=== PATIENT | male | born 1990 | race Caucasian/White ===

== ENCOUNTER 2018-07-18 17:10 | Emergency (ER) | payer SELFPAY ==
[~2018-07-18] VITALS: Ht 182.9 cm; Wt 79.5 kg
[~2018-07-18 17:10] MED LIST: ALLEGRA180 MG PO; BACTROBAN 22GM22 GM TP; GENTAMICIN OPTHA3 GM OU; MYCOLOG-II 10001 CRE TP; NIX CREME RINSE60 M1 TP; NO HOME MEDICATIONS; NORCO 325 MG-51 TAB PO; ULTRAM 50MG TAB50 MG PO
[2018-07-18 17:25] VITALS: BP 110/82; TEMP 97.8
[2018-07-18 18:28] VITALS: PULSE 83
== END 2018-07-18 18:30 | disposition home or self-care (01) ==
LOC: COL.ER 17:10
DX: S61.211A Laceration without foreign body of left index finger without damage to nail, initial encounter (principal); Z23 Encounter for immunization; Z88.0 Allergy status to penicillin; Z88.5 Allergy status to narcotic agent; F17.210 Nicotine dependence, cigarettes, uncomplicated; W26.0XXA Contact with knife, initial encounter; Y92.009 Unspecified place in unspecified non-institutional (private) residence as the place of occurrence of the external cause

== ENCOUNTER 2019-03-23 19:45 | Emergency (ER) | payer SELFPAY ==
[~2019-03-23] VITALS: Ht 182.9 cm; Wt 77.3 kg
[2019-03-23 19:49] VITALS: BP 121/77; TEMP 97.8
[2019-03-23] MEDS ORDERED: CLEOCIN HCL300 MG PO (20:05)
[2019-03-23] MEDS ORDERED: NORCO 325 MG-51 TAB PO (20:05)
[2019-03-23 20:36] VITALS: PULSE 84
== END 2019-03-23 20:37 | disposition home or self-care (01) ==
LOC: COL.ER 19:45
DX: K08.89 Other specified disorders of teeth and supporting structures (principal)

== ENCOUNTER 2020-11-22 08:52 | Emergency (ER) | payer SELFPAY ==
[~2020-11-22] VITALS: Ht 182.9 cm; Wt 86.4 kg
[~2020-11-22 08:52] MED LIST changes: +CLEOCIN HCL300 MG PO
[2020-11-22 09:02] VITALS: TEMP 98.1
[2020-11-22 09:49] LABS: BASO % 0.3 % (0.0-2.0); EOS % 0.3 % (0-4.0); GRAN # 9.9 (1.4-6.5); GRAN % 83.2 % (42.2-75.2); HEMATOCRIT 49.9 % (42.0-52.0); HEMOGLOBIN 16.6 g/dl (13.5-18.0); LYMPH # 1.3 (1.2-3.4); MEAN CELL VOLUME 89 fl (80.0-100.0); MEAN CORPUSCULAR HEMOGLOBIN 30 pg (27.0-31.0); MEAN CORPUSCULAR HGB CONC 33 g/dl (33.0-37.0); MEAN PLATELET VOLUME 9.2 fl (7.4-10.4); MONO # 0.6 (0.1-0.6); MONO % 4.9 % (1.7-9.3); PLATELET COUNT 309 K/mm3 (130-400); RED BLOOD COUNT 5.59 M/mm3 (4.20-5.60); REDCELL DISTRIBUTION WIDTH-CV 12.9 % (11.5-14.5)
[2020-11-22 10:02] LABS: ALBUMIN 5.1 gm/dL (3.5-5.0); BILIRUBIN,TOTAL 1.5 mg/dL (0.0-1.0); C-REACTIVE PROTEIN 0.5 mg/dL (0.0-0.9); CALCIUM 9.8 mg/dL (8.4-10.2); CREATININE, serum 0.86 (0.66-1.25); POTASSIUM 4.1 mmol/L (3.4-5.0); TOTAL PROTEIN 8.9 gm/dL (6.4-8.2)
[2020-11-22] MEDS ORDERED: NORCO 325 MG-51 TAB PO (11:55)
[2020-11-22 12:16] LABS: COLLECTION METHOD CLEAN CATCH
[2020-11-22 12:20] VITALS: BP 131/84; PULSE 89
[2020-11-22 12:25] LABS: MUCOUS Present /lpf; PH 7 (5-8); SQUAMOUS EPITHELIAL None Seen /hpf; URINE APPEARANCE Clear; URINE BACTERIA None Seen /hpf; URINE BILIRUBIN Negative (NEGATIVE); URINE BLOOD Negative (NEGATIVE); URINE COLOR Yellow; URINE GLUCOSE Negative (NEGATIVE); URINE KETONE Trace (NEGATIVE); URINE LEUKOCYTE ESTERASE Negative (NEGATIVE); URINE NITRATE Negative (NEGATIVE); URINE PROTEIN(semi-quant) Negative (NEGATIVE); URINE RBC 0-2 /hpf; URINE UROBILINOGEN Negative (NEGATIVE)
== END 2020-11-22 12:20 | disposition home or self-care (01) ==
LOC: COL.ER 08:52
PROVIDERS: Family Medicine
DX: K52.9 Noninfective gastroenteritis and colitis, unspecified (principal); F17.210 Nicotine dependence, cigarettes, uncomplicated; Z20.822 Contact with and (suspected) exposure to COVID-19; Z88.0 Allergy status to penicillin; Z88.6 Allergy status to analgesic agent
CPT/HCPCS: J2270; J2405; J7120; Q9967

== ENCOUNTER → 2020-11-24 | Day surgery (SDC) | payer SELFPAY ==
[~2020-11-24] VITALS: Ht 182.9 cm; Wt 84.6 kg
[2020-11-24 08:38] VITALS: BP 114/85; PULSE 68; TEMP 96.9
--- NOTE | 2020-11-24 08:38 | NUR ---
PATIENT TRANSPORTED TO BAY 3 ACCOMPANIED BY ENDO RN PER CART. PATIENT GROGGY. PATIENT IS ABLE TO AMBULATE WITH 2 ASSIST WITH CHAIR BROUGHT UP TO CART. MONITORS APPLIED. VSS ON ROOM AIR. AT BEDSIDE. VERBAL REPORT RECEIVED FROM ENDO RN. PATIENT IS VERY DROWSY.
[2020-11-24 08:45] VITALS: BP 67/53; PULSE 60
--- NOTE | 2020-11-24 08:45 | NUR ---
BLOOD PRESSURE IS 67/35. BLOOD PRESSURE CUF READJUSTED. PATIENT WAKES WHEN SPOKEN TO. BLOOD PRESSSURE RECHECKED IT WAS 106/79. AT BEDSIDE. PATIENT GIVEN APPLE JUICE.
[2020-11-24 08:50] VITALS: BP 106/79; PULSE 68
--- NOTE | 2020-11-24 08:57 | NUR ---
VSS ON ROOM AIR. PATIENT EYES OPEN AND SPEAKS WITH . PATIENT DENIES DISCOMFORT AND NAUSEA. PATIENT GIVEN MUFFIN TO EAT.
[2020-11-24 09:00] VITALS: BP 105/75; PULSE 71
--- NOTE | 2020-11-24 09:05 | NUR ---
VSS ON ROOM AIR. PATIENT EATS ALL OF MUFFIN. DR BOBBY IN ROOM AND SPEAKS WITH PATIENT AND .
[2020-11-24 09:15] VITALS: BP 106/65; PULSE 63
--- NOTE | 2020-11-24 09:15 | NUR ---
VSS ON ROOM AIR. PATIENT TOLERATES MUFFIN WITHOUT PROBLEMS. PATIENT ALERT AND TALKING WITH . CONTINUES TO DENY PROBLEMS.
[2020-11-24 09:30] VITALS: BP 102/64; PULSE 74; TEMP 97.2
--- NOTE | 2020-11-24 09:30 | NUR ---
VSS ON ROOM AIR. PATIENT DOING WELL. DISCHARGE INSTRUCTIONS GIVEN VERBAL AND DISCHARGE PACKET PROVIDED TO PATIENT. QUESTIONS ANSWERED AND PATIENT AND VOICE UNDERSTANDING. PATIENT CHANGES INTO STREET CLOTHES
--- NOTE | 2020-11-24 09:45 | NUR ---
PATIENT DISCHARGED PER WHEEL CHAIR [facility]
[2020-11-25 08:06] VITALS: BP 106/73; PULSE 71; TEMP 97.3
[2020-11-25 08:56] VITALS: BP 106/81; PULSE 69
--- NOTE | 2020-11-25 10:14 | NUR ---
[facility] INFORMATION WAS ENTER IN COMPUTER ON 11/25/20
== END ==
LOC: SDCO 06:29
DX: K92.1 Melena (principal); K52.9 Noninfective gastroenteritis and colitis, unspecified; K62.89 Other specified diseases of anus and rectum; K64.0 First degree hemorrhoids; D72.829 Elevated white blood cell count, unspecified; G89.29 Other chronic pain; Z20.822 Contact with and (suspected) exposure to COVID-19
CPT/HCPCS: J2704; J3010; J7120

== ENCOUNTER 2021-06-15 19:53 | Emergency (ER) | payer SELFPAY | END 2021-06-15 20:28 | disposition left against medical advice (07) | LOC: COL.ER 19:53 | DX: R52 Pain, unspecified (principal) ==

== ENCOUNTER 2021-12-31 08:03 | Emergency (ER) | payer SELFPAY ==
[~2021-12-31] VITALS: Ht 182.9 cm; Wt 86.4 kg
[2021-12-31 08:08] VITALS: BP 105/78; TEMP 97.8
[2021-12-31] MEDS ORDERED: OXY IR5 MG PO (09:33)
[2021-12-31] MEDS ORDERED: NAPROSYN500 MG PO (09:33)
[2021-12-31 09:40] VITALS: PULSE 69
== END 2021-12-31 09:40 | disposition home or self-care (01) ==
LOC: COL.ER 08:03
DX: K03.81 Cracked tooth (principal); F17.210 Nicotine dependence, cigarettes, uncomplicated